=== PATIENT | male | born 1990 | race Caucasian/White ===

== ENCOUNTER 2016-04-18 12:55 | Inpatient (IN) | payer OTHER ==
[2016-04-18 13:37] VITALS: BMI 25.2
--- NOTE | 2016-04-18 13:46 | HP ---
Admission ROS [facility] Chief Complaint: REHAB TX FOR OPIOIDS AND COCAINE DEPENDENCE Allergies/Adverse Reactions: Allergies Allergy/AdvReac Type Severity Reaction Status Date / Time No Known Allergies Allergy Verified 04/18/16 13:39 History of Present Illness: 26 Y/O MALE WITH A HX OF HEROIN/OXYCODONE AND COCAINE DEPENDENCE SEEKING REHAB TX. FIRST TIME HERE BUT HAS PREVIOUS TX EPISODES. PT STATES WAS RELEASED FROM [facility] TODAY AFTER 3-4 MONTHS STAY AND REFERRED TO REHAB TX BY DRUG COURT LEGAL MANDATE. Exam Limitations: No Limitations - Ebola screening Have you traveled outside of the country in the last 21 days: No Have you had contact with anyone from an Ebola affected area: No Have you been sick,other than usual withdrawal symptoms: No Do you have a fever: No - Review of Systems Constitutional: No Symptoms Reported EENT: reports: Tearing, Nose Congestion Respiratory: reports: No Symptoms reported Cardiac: reports: No Symptoms Reported GI: reports: No Symptoms Reported : reports: No Symptoms Reported Musculoskeletal: reports: No Symptoms Reported Integumentary: reports: No Symptoms Reported Neuro: reports: Other (PT REPORTS HAVING A CONVULSION TYPE REACTION AFTER PASSING OUT ONCE BUT NEVER WENT TO ER TO SEEK HELP IN 2014.) Endocrine: reports: No Symptoms Reported Hematology: reports: No Symptoms Reported Psychiatric: reports: Orientated x3, Anxious Other Systems: Reviewed and Negative Patient History - Patient Medical History Hx Anemia: No Hx Asthma: No Hx Chronic Obstructive Pulmonary Disease (COPD): No Hx Cardiac Disorders: No Hx Hypertension: No Hx Hypercholesterolemia: No HX Cerebrovascular Accident: No Hx Seizures: No (???CONVULSION REACTION ONCE BUT DID NOT GO TO ER.) Hx Diabetes: No Hx Gastrointestinal Disorders: No Hx Genitourinary Disorders: No Hx Sexually Transmitted Disorders: No Hx Renal Disease (ESRD): No Hx Thyroid Disease: No Hx Human Immunodeficiency Virus (HIV): No (NEGATIVE HX) Hx Hepatitis C: No Hx Depression: No Hx Suicide Attempt: No (DENIES) Hx Bipolar Disorder: No Hx Schizophrenia: No - Patient Surgical History Past Surgical History: Yes Hx Cataract Extraction: No Hx Cardiac Surgery: No Hx Lung Surgery: No Hx Breast Surgery: No Hx Breast Biopsy: No Hx Abdominal Surgery: No Hx Appendectomy: No Hx Cholecystectomy: No Hx Genitourinary Surgery: No Hx Orthopedic Surgery: No Other Surgical History: TONSILLECTOMY AT 9 YRS OLD Anesthesia Reaction: No - PPD History Previous Implant?: Yes Documented Results: Negative w/o proof Implanted On Prior [facility] Admission?: No Results: TO BE DONE PPD to be Administered?: Yes - Reproductive History Patient is a Female of Child Bearing Age (11 -55 yrs old): No (MALE) - Smoking Cessation Smoking history: Current every day smoker Have you smoked in the past 12 months: Yes Aproximately how many cigarettes per day: 10 Hx Chewing Tobacco Use: No Initiated information on smoking cessation: Yes 'Breaking Loose' booklet given: 04/18/16 - Substance & Tx. History Hx Alcohol Use: No (DENIES) Hx Substance Use: Yes (HEROIN/OXYCODONE/COCAINE) Substance Use Type: Cocaine (LAST USED 3-4 MONTHS AGO---D/C FROM [facility] TODAY.), Heroin (LAST USED 3-4 MONTHS AGO), Opiates (LAST USED 3-4 MONTHS AGO) Hx Substance Use Treatment: Yes [facility]/ ARMS ACRES DETOX IN THE PAST) Family Disease History - Family Disease History Family History: Denies Admission Physical Exam [facility] - Vital Signs Vital Signs: Vital Signs - 24 hr 04/18/16 13:35 Temperature 96.2 F L Pulse Rate 78 Respiratory 18 Rate Blood Pressure 136/70 - Physical General Appearance: Yes: No Apparent Distress, Anxious HEENTM: Yes: EOMI, Normocephalic, GLORIA, Pharynx Normal Respiratory: Yes: Chest Non-Tender, Lungs Clear, Normal Breath Sounds, No Respiratory Distress Neck: Yes: Supple, Trachea in good position Breast: Yes: Breast Exam Deferred Cardiology: Yes: Regular Rhythm, Regular Rate, S1, S2 Abdominal: Yes: Normal Bowel Sounds, Non Tender, Soft Genitourinary: Yes: Other (N/C) Back: Yes: Within Normal Limits Musculoskeletal: Yes: full range of Motion, Gait Steady Extremities: Yes: Normal Range of Motion, Non-Tender Neurological: Yes: air quality consultant II-XII NML intact, Fully Oriented, Alert, Motor Strength 5/5 Integumentary: Yes: Dry, Warm Lymphatic: Yes: Within Normal Limits - Diagnostic (1) Opioid dependence with withdrawal Current Visit: Yes Status: Chronic (2) Cocaine dependence, uncomplicated Current Visit: Yes Status: Chronic Cleared for Admission [facility] - Detox or Rehab Claeared for Rehab Admission: Yes [facility] Breath Alcohol Content Breath Alcohol Content: 0 Urine Drug Screen - Results Drug Screen Negative: Yes
[2016-04-18] MEDS ORDERED: MAGNESIUM CITRATE 300 ML BOTTLE PO PRN (14:43)
[2016-04-18] MEDS ORDERED: LOPERAMIDE HCL 2 MG CAPSULE PO PRN (14:43)
[2016-04-18] MEDS ORDERED: MENTHOL/PHENOL 1 EACH UD MM PRN (14:43)
[2016-04-18] MEDS ORDERED: MAG HYDROX/AL HYDROX/SIMETH 30 ML UNIT-DOSE CUP PO PRN (14:43)
[2016-04-18] MEDS ORDERED: ACETAMINOPHEN 325 MG TABLET (FP) PO PRN (14:43)
[2016-04-18] MEDS ORDERED: guaiFENesin/D-METHORPHAN HB 10 ML UNIT-DOSE CUPS PO PRN (14:43)
[2016-04-18] MEDS ORDERED: P-EPHED 60MG/TRIPROLIDI 2.5MG TABLET PO PRN (14:43)
[2016-04-18] MEDS ORDERED: NICOTINE POLACRILEX 2 MG GUM BUC PRN (14:43)
[2016-04-18] MEDS ORDERED: MAGNESIUM HYDROX 2400MG/30ML ORAL SUSPENSION 30 ML CUP PO PRN (14:43)
[2016-04-18] MEDS ORDERED: IBUPROFEN 400 MG TABLET (FP) PO PRN (14:43)
[2016-04-18] MEDS: NICOTINE 14 MG/24 HOURS TOPICAL PATCH TD SCH (17:42)
[2016-04-18 18:48] LABS: URINE APPEARANCE SLCLOUDY; URINE BILIRUBIN NEGATIVE (NEGATIVE); URINE BLOOD NEGATIVE (NEGATIVE); URINE COLOR DKYELLOW; URINE GLUCOSE (UA) NEGATIVE (NEGATIVE); URINE KETONE NEGATIVE (NEGATIVE); URINE LEUK ESTERASE NEGATIVE (NEGATIVE); URINE NITRITE NEGATIVE (NEGATIVE); URINE UROBILINOGEN NEGATIVE E.U./dl (0.2-1.0)
[2016-04-18 18:55] LABS: URINE PROTEIN 1+ (NEGATIVE)
[2016-04-18 19:07] LABS: URINE MUCUS MANY; URINE RBC 2 /hpf (0-3); URINE WBC 1 /hpf (3-5)
[2016-04-18] MEDS: THIAMINE HCL 100 MG TABLET (FP) PO SCH (21:53)
[2016-04-19 09:30] LABS: MCH 31.8 pg (25.7-33.7); MCHC 34.9 g/dl (32.0-35.9); MEAN CELL VOLUME 91.2 fl (80-96); MEAN PLT VOLUME 10.3 fl (7.5-11.1); PLATELET COUNT 191 K/MM3 (134-434); RDW 12.7 % (11.9-15.9); WHITE BLOOD COUNT 8.9 K/mm3 (4.0-10.0)
[2016-04-19 10:09] LABS: ALBUMIN 4.1 g/dl (3.4-5.0); ALK PHOS 61 U/L (45-117); ANION GAP 7 (8-16); BILIRUBIN,TOTAL 0.3 mg/dL (0.2-1.0); CALCIUM 9.2 mg/dL (8.5-10.1); CO2 27 mmol/L (21-32); CREATININE 0.8 mg/dL (0.7-1.3); GLUCOSE,RANDOM 96 mg/dL (74-106); SGOT/AST 13 U/L (15-37); SGPT/ALT 32 U/L (12-78); TOT PROT 6.6 g/dl (6.4-8.2)
[2016-04-19] MEDS: NICOTINE 14 MG/24 HOURS TOPICAL PATCH TD SCH (10:33)
[2016-04-19] MEDS: PRENATAL VITAMINS W/ FOLIC ACID TABLET (FP) PO SCH (10:33)
--- NOTE | 2016-04-19 14:28 | HP ---
Psychiatrist Admission - Data Date of interview: 04/19/16 Admission source: [facility] Identifying data: This is the first 5N inpatient rehabilitation admission for thsi 26 year old single white male residing with his mother in [place]. Medical History: Patient reports medical hx of convulsion reaction one time unknown if seizure, stated he did not go to ER, reports surgical hx of Tonsilectomy, smokes cigarettes 1 ppd Psychiatric History: Denies history of psychiatric treatment. Physical/Sexual Abuse/Trauma History: Denies history of sexual, physical and verbla abuse. Vital Signs: Vital Signs - 24 hr 04/19/16 04/19/16 04/19/16 00:30 03:30 07:19 Temperature 97.0 F L Pulse Rate 63 Respiratory 18 18 16 Rate Blood Pressure 127/80 Allergies/Adverse Reactions: Allergies Allergy/AdvReac Type Severity Reaction Status Date / Time No Known Allergies Allergy Verified 04/18/16 13:39 Date of last physical exam: 04/18/16 Concur with the findings of this exam: Yes - Substance Abuse/Tx History Hx Alcohol Use: No Hx Substance Use: Yes Substance Use Type: Cocaine, Heroin (10 bags a day) Hx Substance Use Treatment: Yes ([facility]) - Admission Criteria Previous failed treatment: Yes Poor recovery environment: Yes Comorbidities: No Lacks judgement: Yes Mental Status Exam - Mental Status Exam Alert and Oriented to: Time, Place, Person Cognitive Function: Grossly Intact Patient Appearance: Well Groomed Mood: Hopeful Affect: Appropriate, Mood Congruent Patient Behavior: Appropriate, Cooperative Speech Pattern: Clear, Appropriate Voice Loudness: Normal Thought Process: Intact, Goal Oriented Thought Disorder: Not Present Hallucinations: Denies Suicidal Ideation: Denies Homicidal Ideation: Denies Insight/Judgement: Good Sleep: Well Appetite: Good Muscle strength/Tone: Normal Gait/Station: Normal Psychiatric Findings - Problem List ([place] 1, 2,3) (1) Cocaine dependence, uncomplicated Current Visit: Yes Status: Chronic (2) Opioid dependence with withdrawal Current Visit: Yes Status: Chronic (3) Nicotine dependence Current Visit: Yes Status: Acute - Initial Treatment Plan Initial Treatment Plan: Will monitor progress as needed.
[2016-04-19] MEDS: THIAMINE HCL 100 MG TABLET (FP) PO SCH (22:23)
[2016-04-20] MEDS: hydrOXYzine PAMOATE 25 MG CAPSULE (FP) PO PRN (10:30)
[2016-04-20] MEDS: PRENATAL VITAMINS W/ FOLIC ACID TABLET (FP) PO SCH (10:30)
[2016-04-20] MEDS: NICOTINE 14 MG/24 HOURS TOPICAL PATCH TD SCH (10:30)
[2016-04-20] MEDS: THIAMINE HCL 100 MG TABLET (FP) PO SCH (22:19)
[2016-04-21] MEDS: NICOTINE 14 MG/24 HOURS TOPICAL PATCH TD SCH (10:28)
[2016-04-21] MEDS: hydrOXYzine PAMOATE 25 MG CAPSULE (FP) PO PRN (10:28)
[2016-04-21] MEDS: PRENATAL VITAMINS W/ FOLIC ACID TABLET (FP) PO SCH (10:28)
[2016-04-21] MEDS: diphenhydrAMINE HCL 50 MG CAPSULE PO PRN (22:39)
[2016-04-21] MEDS: THIAMINE HCL 100 MG TABLET (FP) PO SCH (22:39)
[2016-04-22] MEDS: NICOTINE 14 MG/24 HOURS TOPICAL PATCH TD SCH (10:25)
[2016-04-22] MEDS: PRENATAL VITAMINS W/ FOLIC ACID TABLET (FP) PO SCH (10:25)
[2016-04-22] MEDS: hydrOXYzine PAMOATE 25 MG CAPSULE (FP) PO PRN (10:26)
[2016-04-22] MEDS: THIAMINE HCL 100 MG TABLET (FP) PO SCH (21:51)
[2016-04-23] MEDS: NICOTINE 14 MG/24 HOURS TOPICAL PATCH TD SCH (10:33)
[2016-04-23] MEDS: PRENATAL VITAMINS W/ FOLIC ACID TABLET (FP) PO SCH (10:33)
[2016-04-23] MEDS: hydrOXYzine PAMOATE 25 MG CAPSULE (FP) PO PRN (10:34)
[2016-04-23] MEDS: THIAMINE HCL 100 MG TABLET (FP) PO SCH (23:56)
[2016-04-24] MEDS: NICOTINE 14 MG/24 HOURS TOPICAL PATCH TD SCH (10:16)
[2016-04-24] MEDS: PRENATAL VITAMINS W/ FOLIC ACID TABLET (FP) PO SCH (10:16)
[2016-04-24] MEDS: hydrOXYzine PAMOATE 25 MG CAPSULE (FP) PO PRN (10:17)
[2016-04-24] MEDS: diphenhydrAMINE HCL 50 MG CAPSULE PO PRN (21:39)
[2016-04-24] MEDS: THIAMINE HCL 100 MG TABLET (FP) PO SCH (21:39)
[2016-04-25] MEDS: PRENATAL VITAMINS W/ FOLIC ACID TABLET (FP) PO SCH (10:26)
[2016-04-25] MEDS: NICOTINE 14 MG/24 HOURS TOPICAL PATCH TD SCH (10:27)
[2016-04-25] MEDS: hydrOXYzine PAMOATE 25 MG CAPSULE (FP) PO PRN (10:28)
[2016-04-25] MEDS: THIAMINE HCL 100 MG TABLET (FP) PO SCH (21:55)
[2016-04-26] MEDS: NICOTINE 14 MG/24 HOURS TOPICAL PATCH TD SCH (09:34)
[2016-04-26] MEDS: PRENATAL VITAMINS W/ FOLIC ACID TABLET (FP) PO SCH (09:34)
[2016-04-26] MEDS: hydrOXYzine PAMOATE 25 MG CAPSULE (FP) PO PRN (09:35)
[2016-04-26] MEDS: THIAMINE HCL 100 MG TABLET (FP) PO SCH (22:36)
[2016-04-27] MEDS: NICOTINE 14 MG/24 HOURS TOPICAL PATCH TD SCH (10:21)
[2016-04-27] MEDS: PRENATAL VITAMINS W/ FOLIC ACID TABLET (FP) PO SCH (10:21)
[2016-04-27] MEDS: hydrOXYzine PAMOATE 25 MG CAPSULE (FP) PO PRN (10:22)
[2016-04-27] MEDS: THIAMINE HCL 100 MG TABLET (FP) PO SCH (21:44)
[2016-04-28] MEDS: PRENATAL VITAMINS W/ FOLIC ACID TABLET (FP) PO SCH (10:27)
[2016-04-28] MEDS: NICOTINE 14 MG/24 HOURS TOPICAL PATCH TD SCH (10:27)
[2016-04-28] MEDS: hydrOXYzine PAMOATE 25 MG CAPSULE (FP) PO PRN (10:28)
[2016-04-28] MEDS: THIAMINE HCL 100 MG TABLET (FP) PO SCH (21:49)
[2016-04-29] MEDS: NICOTINE 14 MG/24 HOURS TOPICAL PATCH TD SCH (10:32)
[2016-04-29] MEDS: PRENATAL VITAMINS W/ FOLIC ACID TABLET (FP) PO SCH (10:32)
[2016-04-29] MEDS: THIAMINE HCL 100 MG TABLET (FP) PO SCH (22:09)
[2016-04-30] MEDS: NICOTINE 14 MG/24 HOURS TOPICAL PATCH TD SCH ×2 (10:40→10:47)
[2016-04-30] MEDS: PRENATAL VITAMINS W/ FOLIC ACID TABLET (FP) PO SCH ×2 (10:40→10:47)
[2016-04-30] MEDS: THIAMINE HCL 100 MG TABLET (FP) PO SCH (21:41)
[2016-05-01] MEDS: PRENATAL VITAMINS W/ FOLIC ACID TABLET (FP) PO SCH ×2 (10:25→10:43)
[2016-05-01] MEDS: NICOTINE 14 MG/24 HOURS TOPICAL PATCH TD SCH (10:25)
[2016-05-01] MEDS: THIAMINE HCL 100 MG TABLET (FP) PO SCH (21:54)
[2016-05-02] MEDS: NICOTINE 14 MG/24 HOURS TOPICAL PATCH TD SCH (10:24)
[2016-05-02] MEDS: PRENATAL VITAMINS W/ FOLIC ACID TABLET (FP) PO SCH (10:24)
[2016-05-02] MEDS: THIAMINE HCL 100 MG TABLET (FP) PO SCH (21:51)
[2016-05-03] MEDS: PRENATAL VITAMINS W/ FOLIC ACID TABLET (FP) PO SCH (10:20)
[2016-05-03] MEDS: NICOTINE 14 MG/24 HOURS TOPICAL PATCH TD SCH (10:20)
[2016-05-03] MEDS: THIAMINE HCL 100 MG TABLET (FP) PO SCH (21:50)
[2016-05-04] MEDS: NICOTINE 14 MG/24 HOURS TOPICAL PATCH TD SCH (10:13)
[2016-05-04] MEDS: PRENATAL VITAMINS W/ FOLIC ACID TABLET (FP) PO SCH (10:13)
[2016-05-04] MEDS: THIAMINE HCL 100 MG TABLET (FP) PO SCH (22:56)
[2016-05-05] MEDS: PRENATAL VITAMINS W/ FOLIC ACID TABLET (FP) PO SCH (10:21)
[2016-05-05] MEDS: NICOTINE 14 MG/24 HOURS TOPICAL PATCH TD SCH (10:21)
[2016-05-05] MEDS: THIAMINE HCL 100 MG TABLET (FP) PO SCH (22:07)
[2016-05-06] MEDS: PRENATAL VITAMINS W/ FOLIC ACID TABLET (FP) PO SCH (10:37)
[2016-05-06] MEDS: NICOTINE 14 MG/24 HOURS TOPICAL PATCH TD SCH (10:38)
[2016-05-06] MEDS: THIAMINE HCL 100 MG TABLET (FP) PO SCH (21:43)
[2016-05-07] MEDS: NICOTINE 14 MG/24 HOURS TOPICAL PATCH TD SCH (10:43)
[2016-05-07] MEDS: PRENATAL VITAMINS W/ FOLIC ACID TABLET (FP) PO SCH (10:43)
[2016-05-07] MEDS: THIAMINE HCL 100 MG TABLET (FP) PO SCH (21:56)
[2016-05-08] MEDS: PRENATAL VITAMINS W/ FOLIC ACID TABLET (FP) PO SCH (10:17)
[2016-05-08] MEDS ORDERED: COLLOIDAL OATMEAL 1 BAR EACH TP PRN (13:58)
[2016-05-08] MEDS: THIAMINE HCL 100 MG TABLET (FP) PO SCH (21:42)
[2016-05-09] MEDS: PRENATAL VITAMINS W/ FOLIC ACID TABLET (FP) PO SCH (10:38)
[2016-05-09] MEDS: THIAMINE HCL 100 MG TABLET (FP) PO SCH (22:07)
[2016-05-10] MEDS: PRENATAL VITAMINS W/ FOLIC ACID TABLET (FP) PO SCH (10:12)
[2016-05-10] MEDS: THIAMINE HCL 100 MG TABLET (FP) PO SCH (21:33)
[2016-05-11] MEDS: PRENATAL VITAMINS W/ FOLIC ACID TABLET (FP) PO SCH (10:15)
[2016-05-11] MEDS: THIAMINE HCL 100 MG TABLET (FP) PO SCH (21:52)
[2016-05-12] MEDS: PRENATAL VITAMINS W/ FOLIC ACID TABLET (FP) PO SCH (09:48)
[2016-05-12] MEDS: THIAMINE HCL 100 MG TABLET (FP) PO SCH (21:52)
[2016-05-13 06:46] VITALS: BP 123/65; PULSE 71; TEMP 97.5
[2016-05-13] MEDS: PRENATAL VITAMINS W/ FOLIC ACID TABLET (FP) PO SCH (09:45)
[2016-05-13] MEDS: THIAMINE HCL 100 MG TABLET (FP) PO SCH (22:08)
--- NOTE | 2016-05-14 08:40 | PN ---
Psychiatric Progress Note Vital Signs: Vital Signs Period Temp Pulse Resp BP Sys/Chanel Pulse Ox Last 24 Hr 16- Date of Session: 05/14/16 Chief Complaint:: discharge visit HPI: Patient has addressed opioid, cocaine and nicotine dependence. ROS: WNL Current Medications: Active Medications Generic Name Dose Route Start Last Admin Trade Name Freq PRN Reason Stop Dose Admin Acetaminophen 650 mg 04/18/16 14:43 Tylenol - PO Q4H PRN PAIN Al Hydroxide/Mg Hydroxide 30 ml 04/18/16 14:43 Mylanta Oral Suspension - PO Q6H PRN DYSPEPSIA Colloidal Oatmeal 1 applic 05/08/16 13:58 Aveeno Soap - TP DAILY PRN HYGEINE Diphenhydramine HCl 50 mg 04/18/16 14:43 04/24/16 21:39 Benadryl - PO 50 mg HSMR1 PRN Administration INSOMNIA Eucalyptus/Menthol/Phenol/Sorbitol 1 each 04/18/16 14:43 Cepastat Lozenge - MM Q4H PRN SORE THROAT Guaifenesin 10 ml 04/18/16 14:43 Robitussin Dm - PO Q6H PRN COUGH Hydroxyzine Pamoate 25 mg 04/18/16 14:43 04/28/16 10:28 Vistaril - PO 25 mg Q4H PRN Administration AGITATION Ibuprofen 400 mg 04/18/16 14:43 Motrin - PO Q6H PRN SEVERE PAIN Loperamide HCl 4 mg 04/18/16 14:43 Imodium - PO Q6H PRN DIARRHEA Magnesium Citrate 300 ml 04/18/16 14:43 Citroma - PO Q48H PRN CONSTIPATION Magnesium Hydroxide 30 ml 04/18/16 14:43 Milk Of Magnesia - PO DAILY PRN CONSTIPATION Nicotine Polacrilex 2 mg 04/18/16 14:43 Nicorette Gum - BUC Q2H PRN NICOTINE REPLACEMENT RX Multivit/Folic Acid/Iron 1 tab 04/19/16 10:00 05/13/16 09:45 Vitamins ([facility]) - PO 1 tab DAILY BRENDA Administration Pseudoephedrine/Triprolidine 1 combo 04/18/16 14:43 Actifed - PO TID PRN NASAL CONGESTION Thiamine HCl 100 mg 04/18/16 22:00 05/13/16 22:08 Vitamin B1 - PO Not Given HS BRENDA Current Side Effect: No Lab tests ordered: No Lab tests reviewed: Yes Provider note:: Patient has completed today his treatment and met his goals and will continue to addresse his issues at [facility] outpatient treatment program. He focused on importance of changing attitude for utilization of supports to maintain recovery, he verbalized his resolution to stay sober and adherent to every aspects of his outpatient program. Patient appears to be stable for discharge Total face to face time:: 20 Mental Status Exam - Mental Status Exam Alert and Oriented to: Time, Place, Person Cognitive Function: Good Patient Appearance: Well Groomed Mood: Hopeful Affect: Appropriate, Mood Congruent Patient Behavior: Appropriate, Cooperative Speech Pattern: Appropriate Voice Loudness: Normal Thought Process: Intact, Goal Oriented Thought Disorder: Not Present Hallucinations: Denies Suicidal Ideation: Denies Homicidal Ideation: Denies Insight/Judgement: Fair Sleep: Fair Appetite: Fair Muscle strength/Tone: Normal Gait/Station: Normal Psychiatric Treatment Plan - Problem List (1) Cocaine dependence, uncomplicated Current Visit: Yes (2) Opioid dependence with withdrawal Current Visit: Yes (3) Nicotine dependence Current Visit: Yes
== END 2016-05-14 08:20 | disposition home or self-care (01) | DRG 772 ==
LOC: YASAS 12:55 → Y5N 15:27
PROVIDERS: ADMIT Psychiatry & Neurology Psychiatry; ATTEND Psychiatry & Neurology Psychiatry
PROC: HZ42ZZZ Group Counseling for Substance Abuse Treatment, Cognitive-Behavioral (ICD-10-PCS; principal; 2016-04-18)
DX: F11.20 Opioid dependence, uncomplicated (principal); F14.20 Cocaine dependence, uncomplicated; F17.210 Nicotine dependence, cigarettes, uncomplicated
CPT/HCPCS: 36415; 80053; 81003; 81015; 85027; 86593; 93005; 93010

== ENCOUNTER 2017-02-08 20:31 | Emergency (ER) | payer OTHER ==
[2017-02-08 20:35] VITALS: BP 137/74; PULSE 86; TEMP 97; BMI 24.4
[2017-02-08] MEDS ORDERED: IBUPROFEN 600 MG TABLET (FP) PO ONE ×2 (21:45→21:53)
--- NOTE | 2017-02-08 21:45 | PDOC ---
History of Present Illness - General Chief Complaint: Injury Stated Complaint: FOOT INJURY Time Seen by Provider: 02/08/17 21:06 - History of Present Illness Initial Comments: 02/08/17 21:45 CHIEF COMPLAINT: foot/ankle pain HISTORY OF PRESENT ILLNESS: 26 yo M with hx of polysubstance abuse presents to fast track with pain to ankle/foot s/p bball injury. Patient reports that he landed poorly on his foot and felt a "pop" and has swelling to the lateral aspect of his left foot. No recent travel or sick contacts PAST MEDICAL HISTORY: polysubstance abuse FAMILY HISTORY: Denies SOCIAL HISTORY: Polysubstance abuse - heroin, oxycodone, cocaine. Denies tobacco , alcohol. SURGICAL HISTORY: Denies ALLERGIES: No known drug allergies REVIEW OF SYSTEMS General/Constitutional: Denies fever or chills. Denies weakness, weight change. HEENT: Denies change in vision. Denies ear pain or discharge. Denies sore throat. Cardiovascular: Denies chest pain or shortness of breath. Respiratory: Denies cough, wheezing, or hemoptysis. Gastrointestinal: Denies nausea, vomiting, diarrhea or constipation. Denies rectal bleeding. Genitourinary: Denies dysuria, frequency, or change in urination. Musculoskeletal: ankle/foot pain. Denies joint or muscle swelling or pain. Denies neck or back pain. PHYSICAL EXAM General Appearance: Well-appearing, appropriately dressed. No apparent distress. HEENT: EOMI, PERRLA. No conjunctival pallor. No photophobia, scleral icterus. Respiratory/Chest: Lungs CTAB. Cardiovascular: RRR. S1, S2. Vascular Pulses: Dorsalis-Pedis (R): 2+, Dorsalis-Pedis (L): 2+ Musculoskeletal/Extremities: Mild swelling to lateral aspect of L foot with ecchymosis, tenderness to base of 5th metatarsal. No tenderness to medial or lateral malleoli. Sensory discrimination intact to toes, pulses equal b/l. Integumentary: Appropriate color, dry, warm. No cyanosis, erythema, jaundice or rash Neurologic: attendant sales II-XII intact. Fully oriented, alert. Appropriate mood/affect. Motor strength 5/5. No appreciable EOM palsy, facial droop or sensory deficit. Past History - Past Medical History Allergies/Adverse Reactions: Allergies Allergy/AdvReac Type Severity Reaction Status Date / Time No Known Allergies Allergy Verified 02/08/17 20:35 Home Medications: Ambulatory Orders Ibuprofen 800 mg PO Q8H PRN #30 tablet 02/08/17 Anemia: No Asthma: No Cardiac Disorders: No CVA: No COPD: No Diabetes: No GI Disorders: No Disorders: No HTN: No Hypercholesterolemia: No Kidney Stones: No Seizures: No (???CONVULSION REACTION ONCE BUT DID NOT GO TO ER.) Thyroid Disease: No - Surgical History Abdominal Surgery: No Appendectomy: No Cardiac Surgery: No Cholecystectomy: No Lung Surgery: No Neurologic Surgery: No Orthopedic Surgery: No - Reproductive History Testicular Surgery: No - Suicide/Smoking/Psychosocial Hx Smoking History: Current every day smoker Have you smoked in the past 12 months: Yes Number of Cigarettes Smoked Daily: 10 Information on smoking cessation initiated: No 'Breaking Loose' booklet given: 04/18/16 Hx Alcohol Use: No Drug/Substance Use Hx: Yes Substance Use Type: None Hx Substance [facility] *Physical Exam - Vital Signs Last Vital Signs Temp Pulse Resp BP Pulse Ox 97 F L 86 18 137/74 99 02/08/17 20:32 02/08/17 20:32 02/08/17 20:32 02/08/17 20:32 02/08/17 20:32 ED Treatment Course - RADIOLOGY Radiology Studies Ordered: Category Date Time Status ANKLE & FOOT-LEFT* [RAD] Stat Radiology 02/08/17 21:06 Taken Medical Decision Making - Medical Decision Making 02/08/17 22:08 26 yo M with hx of polysubstance abuse presents to fast track with pain to ankle /foot s/p bball injury -ibuprofen -xray x-ray wet read positive for nondisplaced fracture at base of 5th metatarsal. posterior splint applied, crutches provided, f/u ortho *DC/Admit/Observation/Transfer Diagnosis at time of Disposition: Fracture - Discharge Dispostion Disposition: HOME Condition at time of disposition: Stable Admit: No - Prescriptions Prescriptions: Ibuprofen 800 mg PO Q8H PRN #30 tablet PRN Reason: Pain - Referrals Referrals: Mark Oseguera MD [Staff Physician] - - Patient Instructions Printed Discharge Instructions: DI for Foot Fracture Additional Instructions: Please take medications as prescribed and follow up with orthopedics on [place]. As discussed, if you develop any swelling or loss of sensation to your foot or leg, or you notice decreased temperature to your left foot compared to your right, or your develop any new or worsening symptoms, please return to the ER immediately.
== END 2017-02-08 22:17 | disposition home or self-care (01) ==
LOC: JERFT 20:31
PROC: 2W3RX1Z Immobilization of Left Lower Leg using Splint (ICD-10-PCS; principal; 2017-02-08)
DX: S92.355A Nondisplaced fracture of fifth metatarsal bone, left foot, initial encounter for closed fracture (principal); X50.1XXA Overexertion from prolonged static or awkward postures, initial encounter; Y93.67 Activity, basketball; Y92.310 Basketball court as the place of occurrence of the external cause; Y99.8 Other external cause status; F17.210 Nicotine dependence, cigarettes, uncomplicated
CPT/HCPCS: 29515; 73610-TC-LT; 73630-TC-LT; 99282-25

== ENCOUNTER 2018-10-04 15:35 | Emergency (ER) | payer OTHER | END 2018-10-04 16:32 | disposition home or self-care (01) | LOC: JERFT 15:35 ==

== ENCOUNTER 2023-08-01 20:56 | Inpatient (IN) | payer OTHER ==
[2023-08-01 21:28] VITALS: BMI 25.0
[2023-08-01] MEDS ORDERED: IBUPROFEN 600 MG TABLET (FP) PO PRN (22:22)
[2023-08-01] MEDS ORDERED: MELATONIN 5 MG TABLETS PO PRN (22:22)
[2023-08-01] MEDS ORDERED: P-EPHED 60MG/TRIPROLIDI 2.5MG TABLET PO PRN (22:22)
[2023-08-01] MEDS ORDERED: NALOXONE HCL 0.4 MG/ML VIAL IM PRN (22:22)
[2023-08-01] MEDS ORDERED: DICYCLOMINE HCL 10 MG CAPSULE PO PRN (22:22)
[2023-08-01] MEDS ORDERED: ACETAMINOPHEN 325 MG TABLET (FP) PO PRN (22:22)
[2023-08-01] MEDS ORDERED: BENZONATATE 200 MG CAPSULE PO PRN (22:22)
[2023-08-01] MEDS ORDERED: ONDANSETRON *ODT* 4 MG TABLET SL PRN (22:22)
[2023-08-01] MEDS ORDERED: POLYETHYLENE GLYCOL (HEALTHYLAX) 3350 17 GM PACKET PO PRN (22:22)
[2023-08-01] MEDS ORDERED: BENZOCAINE/MENTHOL (CHLORASEPTIC ) LOZENGE MM PRN (22:22)
[2023-08-01] MEDS ORDERED: MAG HYDROX/AL HYDROX/SIMETH 30 ML UNIT-DOSE CUP PO PRN (22:22)
[2023-08-01] MEDS ORDERED: guaiFENesin 600 MG TABLET.ER (FP) PO PRN (22:22)
[2023-08-01] MEDS ORDERED: hydrOXYzine PAMOATE 25 MG CAPSULE (FP) PO PRN (22:22)
[2023-08-01] MEDS ORDERED: METHOCARBAMOL 500 MG TABLET PO PRN (22:22)
[2023-08-01] MEDS ORDERED: IBUPROFEN 400 MG TABLET (FP) PO PRN (22:22)
[2023-08-01] MEDS ORDERED: MAGNESIUM HYDROX 2400MG/30ML ORAL SUSPENSION 30 ML CUP PO PRN (22:22)
[2023-08-01] MEDS ORDERED: LOPERAMIDE HCL 2 MG CAPSULE PO PRN (22:22)
[2023-08-01] MEDS ORDERED: BISMUTH SUBSALICYLATE 524 MG/30 ML PO PRN (22:22)
[2023-08-01] MEDS ORDERED: NALOXONE HCL (KLOXXADO) 8 MG SPRAY NS PRN (22:22)
[2023-08-02] MEDS: PRENATAL VITAMINS W/ FOLIC ACID TABLET (FP) PO SCH (10:04)
[2023-08-02] MEDS ORDERED: diazePAM 5 MG TABLET PO PRN (11:03)
[2023-08-02] MEDS: diazePAM 5 MG TABLET PO SCH (11:37)
[2023-08-02 12:04] LABS: HEMATOCRIT 40.2 % (35.4-49); HEMOGLOBIN 13.6 GM/dL (11.7-16.9); MCH 30.3 pg (25.7-33.7); MCHC 33.9 g/dl (32.0-35.9); MEAN CELL VOLUME 89.4 fl (80-96); MEAN PLT VOLUME 10.9 fl (7.5-11.1); PLATELET COUNT 183 10^3/uL (134-434); RDW 13.7 % (11.9-15.9); WHITE BLOOD COUNT 12.6 K/mm3 (4.0-10.0)
[2023-08-02 12:11] LABS: CHLORIDE 105 mmol/L (98-107); SODIUM 140 mmol/L (136-145)
[2023-08-02 12:13] LABS: CALCIUM 9.4 mg/dL (8.5-10.1)
[2023-08-02 12:14] LABS: ALBUMIN 3.6 g/dl (3.4-5.0); ANION GAP 5 mmol/L (4-13); BLOOD UREA NITROGEN 12.9 mg/dL (7-18); CO2 30 mmol/L (21-32); GLUCOSE,RANDOM 83 mg/dL (74-106)
[2023-08-02 12:17] LABS: CREATININE 0.8 mg/dL (0.55-1.3); SGOT/AST 109 U/L (15-37); SGPT/ALT 61 U/L (13-61)
[2023-08-02 12:18] LABS: BILIRUBIN,TOTAL 0.3 mg/dL (0.2-1)
[2023-08-02 12:19] LABS: ALK PHOS 78 U/L (45-117); TOT PROT 6.5 g/dl (6.4-8.2)
[2023-08-02] MEDS: THIAMINE HCL 100 MG TABLET (FP) PO SCH (22:27)
[2023-08-03 09:11] VITALS: RESP 18
[2023-08-03 12:53] VITALS: BP 147/77; PULSE 56; TEMP 98.6
[2023-08-04] MEDS ORDERED: diazePAM 5 MG TABLET PO SCH (06:00)
[2023-08-05] MEDS ORDERED: diazePAM 5 MG TABLET PO SCH (06:00)
[2023-08-06] MEDS ORDERED: diazePAM 5 MG TABLET PO ONE (06:00)
== END 2023-08-03 15:47 | disposition left against medical advice (07) | DRG 770 ==
LOC: YASAS 20:56 → Y3N 22:30
PROVIDERS: ADMIT Allergy & Immunology; ATTEND Surgery
PROC: HZ2ZZZZ Detoxification Services for Substance Abuse Treatment (ICD-10-PCS; principal; 2023-08-01)
DX: F13.230 Sedative, hypnotic or anxiolytic dependence with withdrawal, uncomplicated (principal); F11.20 Opioid dependence, uncomplicated; F14.20 Cocaine dependence, uncomplicated; F17.210 Nicotine dependence, cigarettes, uncomplicated; I95.9 Hypotension, unspecified; R26.89 Other abnormalities of gait and mobility
CPT/HCPCS: 36415; 80053; 80307; 82962; 85027; 86780; 93005; 93010

== ENCOUNTER 2023-08-02 00:13 | Emergency (ER) | payer OTHER ==
[2023-08-02 00:42] VITALS: BP 140/79; PULSE 95; RESP 16; TEMP 97.9; BMI 22.4
== END 2023-08-02 01:08 | disposition home or self-care (01) ==
LOC: JER 00:13
DX: F19.10 Other psychoactive substance abuse, uncomplicated (principal)
CPT/HCPCS: 99283-25